=== PATIENT | male | born 1990 | race Caucasian/White ===

== ENCOUNTER 2021-01-17 17:40 | Emergency (ER) | payer BC, OTHER ==
[~2021-01-17] VITALS: Ht 167.7 cm; Wt 74.4 kg
[2021-01-17 18:15] VITALS: BP 130/82
--- NOTE | 2021-01-17 18:41 | ED Fall/Injury ---
General Stated Complaint: FALL - R BUTT CHEEK PAIN Source: patient Exam Limitations: no limitations History of Present Illness Date Seen by Provider: Jan 17, 2021 Time Seen by Provider: 18:26 Initial Comments This is a well-appearing 31-year-old male presents to the ER with complaints of right buttock cheek bruising and soreness since he fell yesterday. States he was playing softball around 1645 when he jumped over another player and landed on his right butt cheek. He said he had some bruising and soreness but this is progressively worsened throughout the day. Girlfriend states that the bruising is significantly increased from just a couple hours ago. Has taken some ibuprofen with minimal relief. Allergies and Home Medications Allergies Coded Allergies: No Known Drug Allergies (Unverified , 01/17/21) Home Medications Cyclobenzaprine HCl 10 Mg Tablet, 10 MG PO Q8H PRN for SPASMS Prescribed by: SUSAN CONDON on 01/17/211999 Patient Home Medication List Home Medication List Reviewed: Yes Review of Systems Review of Systems Constitutional: no symptoms reported Eyes: No Symptoms Reported Ears, Nose, Mouth, Throat: no symptoms reported Respiratory: no symptoms reported Gastrointestinal: no symptoms reported Genitourinary: no symptoms reported Musculoskeletal: see HPI Skin: see HPI Psychiatric/Neurological: No Symptoms Reported Physical Exam Vital Signs Vital Signs - First Documented 01/17/21 18:15 Temp 36.6 Pulse 90 Resp 16 B/P (MAP) 130/82 (98) Pulse Ox 99 O2 Delivery Room Air Capillary Refill : Height, Weight, BMI Height: '" Weight: lbs. oz. kg; BMI Method: General Appearance: WD/WN, no apparent distress HEENT: PERRL/EOMI, normal ENT inspection Neck: full range of motion, normal inspection Cardiovascular: normal peripheral pulses, regular rate, rhythm Respiratory: lungs clear, normal breath sounds, no respiratory distress Gastrointestinal: normal bowel sounds, non tender, soft Rectal: normal exam Back: normal inspection, no vertebral tenderness Extremities: normal range of motion, normal inspection Neurologic/Psychiatric: no motor/sensory deficits, alert, normal mood/affect, oriented x 3 Skin: warm/dry, ecchymosis (right buttocks noted to have diffuse purple bruising and hematoma center of glute. ) [place] Coma Score Best Eye Response: (4) Open Spontaneously Best Verbal Response: (5) Oriented Best Motor Response: (6) Obeys Commands [place] Total: 15 Progress/Results/Core Measures Results/Orders Lab Results Laboratory Tests Test 01/17/21 18:42 Range/Units Hemoglobin 13.0 L 13.3-17.7 g/dL Hematocrit 36 L 40-54 % My Orders Orders - SUSAN CONDON APRN Hemoglobin And Hematocrit (01/17/21 18:37) Ct Pelvis W (01/17/21 18:37) Iohexol Injection (Omnipaque 350 Mg/Ml 1 (01/17/21 19:15) Received Contrast (Hold Metformin- Contr (01/17/21 19:15) Ns (Ivpb) (Sodium Chloride 0.9% Ivpb Bag (01/17/21 19:15) Orphenadrine Inj (Ed Only) (Norflex Inje (01/17/21 20:00) Medications Given in ED Vital Signs/I&O 01/17/21 18:15 Temp 36.6 Pulse 90 Resp 16 B/P (MAP) 130/82 (98) Pulse Ox 99 O2 Delivery Room Air Diagnostic Imaging Diagonstic Imaging: Xray Plain Films/CT/US/NM/MRI: pelvis Comments [facility] [place], [place] NAME: MEGHANAJOHNSON Asad [facility] REC#: [id number] PT STATUS: REG ER : 1990 PHYSICIAN: SUSAN CONDON APRN ADMIT DATE: 01/17/21/ER Signed Date of Exam:01/17/21 CT PELVIS W EXAMINATION: CT pelvis with intravenous contrast. TECHNIQUE: Multiple contiguous axial images were obtained through the pelvis after the uneventful administration of intravenous contrast. All CT scans use one or more of the following dose optimizing techniques: automated exposure control, MA and/or KvP adjustment based on patient size and exam type or iterative reconstruction. HISTORY: Right gluteal bruising after fall COMPARISON: None available. FINDINGS: The visualized bowel and appendix are unremarkable without obstruction. The visualized aorta and iliac arteries are normal in caliber. The urinary bladder and prostate gland are unremarkable. There is no free fluid or free air within the visualized pelvis. No pathologically enlarged lymph nodes are seen. There is right hip and upper lower extremity edema and fat stranding likely related to recent trauma. Within the right gluteal soft tissues there is an 8.3 x 3.2 cm fluid collection, likely hematoma (series 3 image 69). No acute fracture is seen. IMPRESSION: 1. Right hip and lower extremity edema, likely related to recent trauma. There is a likely 8.3 x 3.2 cm hematoma within the right gluteal soft tissues. 2. No other acute osseous abnormality of the pelvis. Dictated by: Dictated on workstation # [id number] Dict: 01/17/211938 Trans: 01/17/211954 [facility] [id number] Interpreted by: GALILEA WALKER DO Electronically signed by: GALILEA WALKER DO 01/17/211954 Reviewed: Reviewed by Me Departure Impression Primary Impression: Traumatic hematoma of buttock Disposition: HOME, SELF-CARE Condition: Improved Departure-Patient Inst. Decision time for Depature: 19:58 Referrals: NO,LOCAL PHYSICIAN (PCP/Family) Primary Care Physician Patient Instructions: HEMATOMA Add. Discharge Instructions: Plan: 1. Rest. Avoid over exerting your buttock muscle. 2. Ice 20 minutes at at time 4-6x per day. 3. May take Tylenol or Ibuprofen as needed for pain per package. 4. May use Flexeril as needed for breakthrough pain. DO NOT DRIVE OR OPERATE EQUIPMENT while taking. 5. Return for any new, concerning, or worsening symptoms. Scripts Cyclobenzaprine HCl (Cyclobenzaprine HCl) 10 Mg Tablet 10 MG PO Q8H PRN for SPASMS, #15 TAB 0 Refills Prov: SUSAN CONDON MOTION PICTURE SET WORKER 01/17/21 SUSAN CONDON MOTION PICTURE SET WORKER Jan 17, 2021 18:40
[2021-01-17] MEDS ORDERED: HOLD METFORMIN - RECEIVED CONTRAST 20 ML VIAL IV SCH (19:15)
[2021-01-17] MEDS ORDERED: NS 100 ML (IVPB) BAG IV ONE (19:15)
[2021-01-17] MEDS ORDERED: IOHEXOL 350 MG/ML 100 ML (OMNIPAQUE 350) VIAL IV ONE (19:15)
--- NOTE | 2021-01-17 19:46 | Diagnostic Imaging Report ---
EXAMINATION: CT pelvis with intravenous contrast. TECHNIQUE: Multiple contiguous axial images were obtained through the pelvis after the uneventful administration of intravenous contrast. All CT scans use one or more of the following dose optimizing techniques: automated exposure control, MA and/or KvP adjustment based on patient size and exam type or iterative reconstruction. HISTORY: Right gluteal bruising after fall COMPARISON: None available. FINDINGS: The visualized bowel and appendix are unremarkable without obstruction. The visualized aorta and iliac arteries are normal in caliber. The urinary bladder and prostate gland are unremarkable. There is no free fluid or free air within the visualized pelvis. No pathologically enlarged lymph nodes are seen. There is right hip and upper lower extremity edema and fat stranding likely related to recent trauma. Within the right gluteal soft tissues there is an 8.3 x 3.2 cm fluid collection, likely hematoma (series 3 image 69). No acute fracture is seen. IMPRESSION: 1. Right hip and lower extremity edema, likely related to recent trauma. There is a likely 8.3 x 3.2 cm hematoma within the right gluteal soft tissues. 2. No other acute osseous abnormality of the pelvis. Dictated by: Dictated on workstation # [id number]
[2021-01-17] MEDS ORDERED: CYCL10TA9 PO (20:00)
[2021-01-17] MEDS ORDERED: ORPHENADRINE 60 MG/2 ML (NORFLEX) AMP (ED ONLY) IV ONE (20:00)
== END 2021-01-17 20:14 | disposition home or self-care (01) ==
LOC: EDUNIT# 17:40 → ER 17:43
DX: S30.0XXA Contusion of lower back and pelvis, initial encounter (principal); W21.07XA Struck by softball, initial encounter
CPT/HCPCS: 36415; 72193; 85014; 85018

== ENCOUNTER 2021-07-01 01:29 | Emergency (ER) | payer BC ==
[~2021-07-01] VITALS: Ht 170 cm; Wt 72.5 kg
[~2021-07-01 01:29] MED LIST: CYCL10TA25 PO
[2021-07-01 01:52] VITALS: BP 134/94
[2021-07-01] MEDS ORDERED: IBUPROFEN 800 MG (MOTRIN) TAB PO STA (02:06)
[2021-07-01] MEDS ORDERED: HYDROcodone/APAP 7.5 MG/325 MG (LORTAB, LORCET PLUS) TABLET PO STA (02:06)
--- NOTE | 2021-07-01 02:09 | ED EENT ---
History of Present Illness General Chief Complaint: Eye Problems Stated Complaint: EYE PAIN Source: patient Exam Limitations: no limitations History of Present Illness Date Seen by Provider: Jul 01, 2021 Time Seen by Provider: 02:01 Initial Comments Here with complaint of bilateral eye pain after welding yesterday. States he was using his buddies mask that was auto darkening but it was likely not set dark enough. Denies other injury. Has history of previous welding burn and actually works as a fitter/welder as well. Timing/Duration: gradual Severity: moderate Location: eye (R), eye (L) Prearrival Treatment: no prearrival treatment Allergies and Home Medications Allergies Coded Allergies: No Known Drug Allergies (Unverified , 01/17/21) Patient Home Medication List Home Medication List Reviewed: Yes Cyclobenzaprine HCl (Cyclobenzaprine HCl) 10 Mg Tablet, 10 MG PO Q8H PRN for SPASMS Prescribed by: SUSAN CONDON on 01/17/211999 Review of Systems Review of Systems Constitutional: see HPI; No chills, No fever Eyes: Inflammation, Pain Respiratory: no symptoms reported Cardiovascular: no symptoms reported Skin: no symptoms reported Past Aryrygr-Wpxent-Pzfehf Hx Seasonal Allergies Seasonal Allergies: No Past Medical History Surgeries: Yes (RIGHT WRIST) Respiratory: No Cardiac: No Neurological: Yes (4 BRAIN BLEEDS) Genitourinary: No Gastrointestinal: No Musculoskeletal: Yes (MULTIPLE MUSCULOSKELETAL BREAKS/INJURIES) Endocrine: No HEENT: No Cancer: No Psychosocial: No Integumentary: No Blood Disorders: No Family Medical History Reviewed Nursing Family Hx Physical Exam Height, Weight, BMI Height: '" Weight: lbs. oz. kg; 26.00 BMI Method: General Appearance: WD/WN, mild distress Eyes: bilateral eye conjunctival inflammation, bilateral eye other (Erythema bilateral conjunctive) Cardiovascular: regular rate, rhythm, no murmur Respiratory: lungs clear, normal breath sounds Neurologic/Psychiatric: alert, oriented x 3 Skin: normal color, warm/dry Progress/Results/Core Measures Results/Orders My Orders Orders - CROW RAINES MD Hydrocodone/Apap 7.5/325 Tab (Lortab 7. (07/01/21 02:06) Ibuprofen Tablet (Motrin Tablet) (07/01/21 02:06) Tetracaine 0.5% Ophth Kori Sdv (Tetracai (07/01/21 02:15) Medications Given in ED Current Medications Medications Dose Ordered Sig/Zoë Route Start Time Stop Time Status Last Admin Dose Admin Tetracaine HCl 4 ml ONCE ONCE OU 07/01/21 02:15 07/01/21 02:16 DC 07/01/21 02:12 4 ML Progress Progress Note : Progress Note Seen and evaluated. Hydrocodone 7.5/325 1 tab p.o. Ibuprofen 800 mg p.o. Tetracaine drops to bilateral eyes which resolved the pain. Likely UV keratitis. Discharged home with return precautions. Patient verbalized understanding of instructions and agreement with plan. Departure Impression Primary Impression: UV keratitis Qualified Codes: H16.133 - Photokeratitis, bilateral Disposition: HOME, SELF-CARE Condition: Improved Departure-Patient Inst. Decision time for Depature: 02:28 Referrals: BRANDON ISLAS OD,LOCAL PHYSICIAN (PCP) Primary Care Physician Patient Instructions: [facility] Add. Discharge Instructions: All discharge instructions reviewed with patient and/or family. Voiced understanding. You may use ibuprofen 600 mg every 8 hours as needed for pain. You will be light sensitive for a few days. Take other medications as directed. If you are not taking the prescribed pain medicine, you may take Tylenol/acetaminophen 1000 mg every 6-8 hours as needed for pain. Is very important that you protect your eye from welding ultraviolet light. Return for worse pain, purulent drainage, vision problems or other concerns as needed. If you are not improving you yvette barahona follow-up with the eye doctor listed or of your choosing in 2 to 3 days. CROW RAINES MD Jul 01, 2021 02:09
[2021-07-01] MEDS ORDERED: TETRACAINE 0.5% OPHTH SOLN 4 ML BTL (SINGLE DOSE ONLY) OU ONE (02:15)
[2021-07-01] MEDS ORDERED: ACHD5005 PO (02:40)
== END 2021-07-01 02:40 | disposition home or self-care (01) ==
LOC: EDUNIT# 01:29 → ER 01:31
DX: H16.133 Photokeratitis, bilateral (principal)
CPT/HCPCS: 99283

== ENCOUNTER 2022-08-07 07:53 | Emergency (ER) | payer BC ==
[~2022-08-07] VITALS: Ht 167 cm; Wt 77.1 kg
[~2022-08-07 07:53] MED LIST changes: +ACHD5005 PO
--- NOTE | 2022-08-07 08:21 | ED GI ---
General Chief Complaint: Abdominal/GI Problems Stated Complaint: VOMITING UP BLOOD | Source of Information: Patient, Family Exam Limitations: No Limitations History of Present Illness Date Seen by Provider: Aug 07, 2022 Time Seen by Provider: 08:10 Initial Comments 32-year-old male arrives with his who provides most of the history. She states for the last 2 years every morning when he wakes up he vomits. He frequently has a diarrheal at this time. He does occasionally vomit throughout the day as well. For the last couple of days his vomiting has gotten worse. He describes diffuse abdominal cramping without any focal abdominal tenderness. He has occasionally had streaks of blood in his emesis. He denies any bloody or dark tarry stools. He does have chills but is unsure if he has had fevers. No cough but is describing shortness of breath. He denies any sick contacts. He also complains of some diffuse muscle aches and cramping. Allergies and Home Medications Allergies Coded Allergies: No Known Drug Allergies (Unverified , 01/17/21) Patient Home Medication List Home Medication List Reviewed: Yes Cyclobenzaprine HCl (Cyclobenzaprine HCl) 10 Mg Tablet, 10 MG PO Q8H PRN for SPASMS Prescribed by: SUSAN CONDON on 01/17/211999 Hydrocodone Bit/Acetaminophen (HYDROcodone/APAP 5 MG/325 MG TAB) 1 Tab Tab, 1 TAB PO Q6H Prescribed by: CROW RAINES on 07/01/21 0240 Review of Systems Review of Systems Constitutional: chills EENTM: No Symptoms Reported Respiratory: Shortness of Air Cardiovascular: No Symptoms Reported Gastrointestinal: Abdominal Pain, Diarrhea, Nausea, Vomiting Genitourinary: No Symptoms Reported Musculoskeletal: muscle cramps Skin: no symptoms reported Psychiatric/Neurological: No Symptoms Reported Endocrine: No Symptoms Reported Hematologic/Lymphatic: No Symptoms Reported Past Aguvizm-Lofdsu-Euvkox Hx Patient Social History Tobacco Use?: No Substance use?: Yes Substance type: Marijuana Substance frequency: Once in a while Alcohol Use?: Yes Alcohol Frequency: Rarely Pt feels they are or have been: No Immunizations Up To Date First/Initial COVID19 Vaccinat: N/A Second COVID19 Vaccination Joel: N/A Third COVID19 Vaccination Date: N/A Seasonal Allergies Seasonal Allergies: No Past Medical History Surgeries: Yes (RIGHT WRIST) Respiratory: No Cardiac: No Neurological: Yes (4 BRAIN BLEEDS) Genitourinary: No Gastrointestinal: No Musculoskeletal: Yes (MULTIPLE MUSCULOSKELETAL BREAKS/INJURIES) Endocrine: No HEENT: No Cancer: No Psychosocial: No Integumentary: No Blood Disorders: No Family Medical History Reviewed Nursing Family Hx No Pertinent Family Hx Physical Exam Vital Signs Vital Signs - First Documented 08/07/22 08:12 Temp 36.2 Pulse 68 Resp 18 B/P (MAP) 143/98 (113) Pulse Ox 100 Capillary Refill : Height/Weight/BMI Height: '" Weight: lbs. oz. kg; 25.00 BMI Method: General Appearance: WD/WN, no apparent distress HEENT: normal ENT inspection, pharynx normal Neck: non-tender, supple Respiratory: chest non-tender, lungs clear, normal breath sounds, no respiratory distress, no accessory muscle use, other (Hyperventilating) Cardiovascular: regular rate, rhythm, no edema, no gallop, no JVD, no murmur Gastrointestinal: normal bowel sounds, soft, no organomegaly, tenderness (Diffuse tenderness without rebound or guarding. No mass organomegaly. No skin changes.) Extremities: normal range of motion, non-tender, normal inspection, no pedal edema, no calf tenderness, normal capillary refill Back: normal inspection, no CVA tenderness Neurologic/Psychiatric: alert, normal mood/affect, oriented x 3 Skin: normal color, warm/dry Progress/Results/Core Measures Results/Orders Lab Results Laboratory Tests Test 08/07/22 08:37 08/07/22 09:15 Range/Units White Blood Count 15.9 H 4.3-11.0 10^3/uL Red Blood Count 4.97 4.30-5.52 10^6/uL Hemoglobin 15.8 13.3-17.7 g/dL Hematocrit 44 40-54 % Mean Corpuscular Volume 88 80-99 fL Mean Corpuscular Hemoglobin 32 25-34 pg Mean Corpuscular Hemoglobin Concent 36 32-36 g/dL Red Cell Distribution Width 12.1 10.0-14.5 % Platelet Count 279 130-400 10^3/uL Mean Platelet Volume 10.5 9.0-12.2 fL Immature Granulocyte % (Auto) 1 % Neutrophils (%) (Auto) 89 H 42-75 % Lymphocytes (%) (Auto) 6 L 12-44 % Monocytes (%) (Auto) 4 0-12 % Eosinophils (%) (Auto) 0 0-10 % Basophils (%) (Auto) 0 0-10 % Neutrophils # (Auto) 14.1 H 1.8-7.8 10^3/uL Lymphocytes # (Auto) 1.0 1.0-4.0 10^3/uL Monocytes # (Auto) 0.7 0.0-1.0 10^3/uL Eosinophils # (Auto) 0.0 0.0-0.3 10^3/uL Basophils # (Auto) 0.0 0.0-0.1 10^3/uL Immature Granulocyte # (Auto) 0.1 0.0-0.1 10^3/uL Neutrophils % (Manual) 90 % Lymphocytes % (Manual) 5 % Monocytes % (Manual) 2 % Eosinophils % (Manual) 0 % Basophils % (Manual) 0 % Band Neutrophils 3 % Blood Morphology Comment NORMAL Urine Color YELLOW Urine Clarity CLEAR Urine pH 8.0 5-9 Urine Specific [place] 1.020 1.016-1.022 Urine Protein TRACE H NEGATIVE Urine Glucose (UA) NEGATIVE NEGATIVE Urine Ketones 2+ H NEGATIVE Urine Nitrite NEGATIVE NEGATIVE Urine Bilirubin NEGATIVE NEGATIVE Urine Urobilinogen 0.2 < = 1.0 MG/DL Urine Leukocyte Esterase NEGATIVE NEGATIVE Urine RBC (Auto) NEGATIVE NEGATIVE Urine RBC NONE /HPF Urine WBC 0-2 /HPF Urine Crystals NONE /LPF Urine Bacteria NEGATIVE /HPF Urine Casts NONE /LPF Urine Mucus SMALL H /LPF Urine Culture Indicated NO Sodium Level 141 135-145 MMOL/L Potassium Level 3.6 3.6-5.0 MMOL/L Chloride Level 109 H 98-107 MMOL/L Carbon Dioxide Level 18 L 21-32 MMOL/L Anion Gap 14 5-14 MMOL/L Blood Urea Nitrogen 10 7-18 MG/DL Creatinine 0.92 0.60-1.30 MG/DL Estimat Glomerular Filtration Rate 113 BUN/Creatinine Ratio 11 Glucose Level 144 H 70-105 MG/DL Calcium Level 9.7 8.5-10.1 MG/DL Corrected Calcium 8.5-10.1 MG/DL Total Bilirubin 0.6 0.1-1.0 MG/DL Aspartate Amino Transf (AST/SGOT) 20 5-34 U/L Alanine Aminotransferase (ALT/SGPT) 30 0-55 U/L Alkaline Phosphatase 94 40-136 U/L Total Protein 7.5 6.4-8.2 GM/DL Albumin 4.8 H 3.2-4.5 GM/DL Lipase 22 8-78 U/L Influenza Type A (RT-PCR) Not Detected Not Detecte Influenza Type B (RT-PCR) Not Detected Not Detecte SARS-CoV-2 RNA (RT-PCR) Not Detected Not Detecte My Orders Orders - KENYATTA HUNT DO Comprehensive Metabolic Panel (08/07/22 08:18) Lipase (08/07/22 08:18) Cbc With Automated Diff (08/07/22 08:18) Ondansetron Injection (Zofran Injectio (08/07/22 08:30) Ua Culture If Indicated (08/07/22 08:18) Chest Pa/Lat (2 View) (08/07/22 08:21) Covid 19 Inhouse Test (08/07/22 08:21) Influenza A And B By Pcr (08/07/22 08:21) Manual Differential (08/07/22 08:37) Medications Given in ED Current Medications Medications Dose Ordered Sig/Zoë Route Start Time Stop Time Status Last Admin Dose Admin Ondansetron HCl 8 mg ONCE ONCE IVP 08/07/22 08:30 08/07/22 08:31 DC 08/07/22 08:34 8 MG Vital Signs/I&O 08/07/22 08:12 Temp 36.2 Pulse 68 Resp 18 B/P (MAP) 143/98 (113) Pulse Ox 100 Departure Communication (Admissions) CMP to evaluate liver function, possible gallbladder pathology, overall check electrolytes and renal function. Lipase to rule out pancreatitis. Go ahead and give some IV Zofran to help with his nausea and vomiting symptoms however this could appear to be a more chronic problem for him. His abdominal exam is nonsurgical. He does occasionally smoke marijuana, possible hyperemesis secondary to this. Impression Primary Impression: Chronic vomiting Disposition: 01 HOME, SELF-CARE Condition: Stable Departure-Patient Inst. Referrals: NO,LOCAL PHYSICIAN (PCP/Family) Primary Care Physician Patient Instructions: Nausea and Vomiting, Adult (DC) Add. Discharge Instructions: Take the nausea medicine as prescribed as needed. Increase your fluids at home, rest. Return to the emergency department for any severe concerns. I recommend you follow-up with your primary doctor for further evaluation and treatment recommendations regarding your chronic nausea and vomiting. All discharge instructions reviewed with patient and/or family. Voiced understanding. Scripts Ondansetron (Ondansetron Odt) 8 Mg Tab.rapdis 8 MG SL Q6H PRN for NAUSEA/VOMITING for 7 Days, #42 TAB Prov: KENYATTA HUNT DO 08/07/22 KENYATTA HUNT DO Aug 07, 2022 08:21
[2022-08-07] MEDS ORDERED: ONDANSETRON 4 MG/2 ML (SDV) Z0FRAN IVP ONE (08:30)
--- NOTE | 2022-08-07 08:50 | Diagnostic Imaging Report ---
EXAMINATION: Chest 2 view HISTORY: Shortness of breath. COMPARISON: 02/02/2018. FINDINGS: The lung volumes are normal. No focal consolidation is seen. No large pleural effusion or pneumothorax is seen. The cardiomediastinal silhouette is normal in size and contour. No acute osseous abnormality is seen. IMPRESSION: 1. No acute pleuroparenchymal process. Dictated by: Dictated on workstation # [id number]
[2022-08-07 09:15] LABS: BASOPHILS % (AUTO) 0 % (0-10); BILIRUBIN,URINE NEGATIVE (NEGATIVE); CLARITY,URINE CLEAR; COLOR,URINE YELLOW; EOSINOPHILS % (AUTO) 0 % (0-10); GLUCOSE, URINE (UA) NEGATIVE (NEGATIVE); HEMATOCRIT 44 % (40-54); HEMOGLOBIN 15.8 g/dL (13.3-17.7); KETONES,URINE 2+ (NEGATIVE); LEUKOCYTE ESTERASE ,URINE NEGATIVE (NEGATIVE); LYMPHOCYTES % (AUTO) 6 % (12-44); MEAN CORPUSCULAR HEMOGLOBIN 32 pg (25-34); MEAN CORPUSCULAR HGB CONC 36 g/dL (32-36); MEAN CORPUSCULAR VOLUME 88 fL (80-99); MEAN PLATELET VOLUME 10.5 fL (9.0-12.2); MONOCYTES # (AUTO) 0.7 10^3/uL (0.0-1.0); MONOCYTES % (AUTO) 4 % (0-12); NEUTROPHILS # (AUTO) 14.1 10^3/uL (1.8-7.8); NEUTROPHILS % (AUTO) 89 % (42-75); NITRITE,URINE NEGATIVE (NEGATIVE); PLATELET COUNT 279 10^3/uL (130-400); PROTEIN,URINE TRACE (NEGATIVE); WHITE BLOOD COUNT 15.9 10^3/uL (4.3-11.0)
[2022-08-07 09:20] LABS: ALBUMIN 4.8 GM/DL (3.2-4.5)
[2022-08-07 09:21] LABS: CHLORIDE 109 MMOL/L (98-107); POTASSIUM 3.6 MMOL/L (3.6-5.0); SODIUM 141 MMOL/L (135-145)
[2022-08-07 09:22] LABS: CALCIUM 9.7 MG/DL (8.5-10.1)
[2022-08-07 09:23] LABS: GLUCOSE 144 MG/DL (70-105); TOTAL PROTEIN 7.5 GM/DL (6.4-8.2)
[2022-08-07 09:24] LABS: CARBON DIOXIDE 18 MMOL/L (21-32)
[2022-08-07 09:25] LABS: BILIRUBIN,TOTAL 0.6 MG/DL (0.1-1.0)
[2022-08-07 09:26] LABS: ALKALINE PHOSPHATASE 94 U/L (40-136); CREATININE SERUM 0.92 MG/DL (0.60-1.30); GFR ESTIMATED 113
[2022-08-07 09:28] LABS: BACTERIA,URINE NEGATIVE /HPF; BUN/CREATININE RATIO 11; WBC,URINE 0-2 /HPF
[2022-08-07 09:29] LABS: ALANINE AMINOTRANSFERASE 30 U/L (0-55)
[2022-08-07 09:30] LABS: LIPASE 22 U/L (8-78)
[2022-08-07 09:50] LABS: BAND NEUTROPHILS 3 %; BASOPHILS % (MANUAL) 0 %; EOSINOPHILS % (MANUAL) 0 %; LYMPHOCYTES % (MANUAL) 5 %; MONOCYTES % (MANUAL) 2 %; NEUTROPHILS % (MANUAL) 90 %; RBC MORPH NORMAL
[2022-08-07] MEDS ORDERED: ONDA8TAB13 SL (09:58)
[2022-08-07 10:07] VITALS: BP 114/74
== END 2022-08-07 10:06 | disposition home or self-care (01) ==
LOC: EDUNIT# 07:53 → ER 07:56
DX: R11.2 Nausea with vomiting, unspecified (principal); R10.84 Generalized abdominal pain; Z20.822 Contact with and (suspected) exposure to COVID-19; Z28.310 Unvaccinated for COVID-19
CPT/HCPCS: 36415; 71046; 80053; 81000; 83690; 85007; 85027; 87636

== ENCOUNTER 2022-09-11 05:41 | Outpatient (CLI) | payer BC ==
[~2022-09-11] VITALS: Ht 167.6 cm; Wt 70.8 kg
[~2022-09-11 05:41] MED LIST changes: +ONDA8TAB13 SL
== END 2022-09-11 15:59 | disposition home or self-care (01) ==
LOC: PREOP 05:41
PROVIDERS: ATTEND Surgery
DX: Z01.818 Encounter for other preprocedural examination (principal)

== ENCOUNTER 2022-09-24 11:09 | Day surgery (SDC) | payer BC ==
[~2022-09-24] VITALS: Ht 167.6 cm; Wt 70.8 kg
[2022-09-24] MEDS ORDERED: LACTATED RINGERS 1,000 ML IV STA (11:11)
[2022-09-24] MEDS ORDERED: HURRICAINE EXT TUBE (BENZOCAINE) XX PRN (11:15)
[2022-09-24 11:23] VITALS: BP 127/80
[2022-09-24] MEDS ORDERED: MIDAZOLAM 2 MG/2 ML (VERSED) VIAL ONE (11:28)
[2022-09-24] MEDS ORDERED: PROPOFOL INJECTION 50 ML IV ONE (11:28)
--- NOTE | 2022-09-24 11:33 | Progress Note-Pre Operative ---
Pre-Operative Progress Note Date H&P Reviewed: Sep 24, 2022 Time H&P Reviewed: 11:33 History & Physical: H&P Reviewed, Patient Examed, No changes noted Pre-Operative Diagnosis: n/v hematemesis JASPER WARD DO Sep 24, 2022 11:33
[2022-09-24] MEDS ORDERED: PANT40TA2 PO (11:44)
--- NOTE | 2022-09-24 11:44 | Discharge Inst-Simple/Standard ---
Discharge Inst-Standard Discharge Medications New, Converted or Re-Newed RX: Transmitted to Pharmacy Patient Instructions/Follow Up Plan of Care/Instructions/FU: 2 weeks Stuart Activity as Tolerated: Yes Discharge Diet: Regular Diet JASPER WARD DO Sep 24, 2022 11:44
[2022-09-24 11:45] VITALS: BP 102/66
--- NOTE | 2022-09-24 11:45 | Progress Note-Post Operative ---
Post-Operative Progess Note Surgeon (s)/Bottle Packer (s) Surgeon JASPER WARD DO Bottle Packer: na Pre-Operative Diagnosis n/v hematemesis Post-Operative Diagnosis gastritis Procedure & Operative Findings Date of Procedure 09/24/22 Procedure Performed/Findings egd c biopsies Anesthesia Type per oxyacetylene cutter Estimated Blood Loss Estimated blood loss (mL): none Specimens/Packing Specimens Removed antrum, body, ge JASPER WARD DO Sep 24, 2022 11:45
[2022-09-24 11:50] VITALS: BP 100/66
[2022-09-24 11:55] VITALS: BP 115/65
[2022-09-24 12:15] VITALS: BP 121/71
--- NOTE | 2022-09-24 13:02 | Anesthesia-General Post-Op ---
MAC Patient Condition Mental Status/LOC: Same as Preop Cardiovascular: Satisfactory Nausea/Vomiting: Absent Respiratory: Satisfactory Pain: Controlled Complications: Absent Post Op Complications Complications None Follow Up Care/Instructions Patient Instructions None needed. Anesthesiology Discharge Order Discharge Order Patient is doing well, no complaints, stable vital signs, no apparent adverse anesthesia problems. No complications reported per nursing. HOA HERNÁNDEZ CRNA Sep 24, 2022 13:02
--- NOTE | 2022-09-24 14:10 | OPERATIVE REPORT ---
DATE OF SERVICE: 09/24/2022 PREOPERATIVE DIAGNOSES: Nausea, vomiting, hematemesis. POSTOPERATIVE DIAGNOSIS: Gastritis. SURGEON: Jasper Davidson DO ANESTHESIA: Per STUDIO DATA ANALYST. PROCEDURES: EGD with biopsies. DESCRIPTION OF PROCEDURE: The patient was taken to endoscopy suite, placed in left lateral recumbent position. Timeout was performed. Scope was inserted in the mouth, down the esophagus, stomach and into the duodenum without difficulty. No polyps, masses or ulcerations within the duodenum. Scope was then slowly retracted back until stomach where it was further insufflated. No polyps, masses or ulcerations within the antrum. Biopsy of the antrum was obtained. Scope was retroflexed noting some diffuse areas of gastritis, no other pathology. Biopsy of the body was obtained. Scope was returned to its normal position, slowly withdrawn until distal esophagus. Biopsy of the GE junction was obtained. No polyps, masses or ulcerations. Scope was slowly retracted back until completely removed. The patient tolerated the procedure well without complications, taken to recovery room in stable condition. RECOMMENDATIONS: The patient will follow up on biopsies in 2 weeks. I will start him Protonix 40 mg daily, see if any improvement. Further recommendation pending results. Job ID: [id number] DocumentID: [id number] Dictated Date: 09/24/2022 11:47:01 Product Development Actuary Date: 09/24/2022 14:09:00 Dictated By: JASPER DAVIDSON DO
== END 2022-09-24 12:22 | disposition home or self-care (01) ==
LOC: ENDO 11:09
PROVIDERS: ATTEND Surgery
DX: K29.71 Gastritis, unspecified, with bleeding (principal); K20.91 Esophagitis, unspecified with bleeding; F17.200 Nicotine dependence, unspecified, uncomplicated; Z28.310 Unvaccinated for COVID-19

== ENCOUNTER → 2022-10-15 | Outpatient (CLI) | payer BC ==
[~2022-10-15] MED LIST changes: +PANT40TA2 PO
--- NOTE | 2022-10-15 10:41 | Diagnostic Imaging Report ---
PROCEDURE: US Gallbladder. TECHNIQUE: Multiple real-time grayscale images were obtained over the right upper quadrant in various projections. INDICATION: Nausea and vomiting COMPARISON: None available FINDINGS: The visualized pancreas, aorta, and IVC are normal. The liver is normal. The gallbladder is normal. No pericholecystic fluid. No ascites. No intra or extrahepatic duct dilation, however the common bile duct is not delineated from the surrounding structures. The portal vein is patent and demonstrates hepatopedal flow. The kidney is normal. IMPRESSION: No abnormal liver/gallbladder findings The common bile duct was not assessed due to nonvisualization. Dictated by: Dictated on workstation # [id number]
== END ==
LOC: RAD 09:06
PROVIDERS: ATTEND Nurse Practitioner
DX: R11.2 Nausea with vomiting, unspecified (principal)
CPT/HCPCS: 76705

== ENCOUNTER → 2022-11-07 | Outpatient (CLI) | payer BC ==
[~2022-11-07] MED LIST changes: +CATHETER FLUSH 10 ML SYR IVP PRN
--- NOTE | 2022-11-07 13:33 | Diagnostic Imaging Report ---
INDICATION: Epigastric pain. EXAMINATION: HIDA scan, 11/07/2022. FINDINGS: After uneventful administration of 5.5 mCi of technetium-99m Choletec intravenously, subsequent imaging is performed with prompt homogeneous uptake seen throughout the liver. Gallbladder and small bowel are seen within 60 minutes. Subsequently administration of ensure administered orally with continued imaging performed. Ejection fraction was calculated at 32%. IMPRESSION: 1. No obstructive process. 2. Low ejection fraction suggesting gallbladder dyskinesia versus chronic cholecystitis. Dictated by: Dictated on workstation # [id number]
== END ==
LOC: CARD 10:55
PROVIDERS: ATTEND Nurse Practitioner
DX: R10.13 Epigastric pain (principal)
CPT/HCPCS: 78227; A9537

== ENCOUNTER 2022-11-15 05:29 | Outpatient (CLI) | payer BC ==
[~2022-11-15] VITALS: Ht 167.6 cm; Wt 70.8 kg
[~2022-11-15 05:29] MED LIST changes: -CATHETER FLUSH 10 ML SYR IVP PRN
[2022-11-15] MEDS ORDERED: HYDR-700 PO (12:44)
[2022-11-15] MEDS ORDERED: METO5TAB2 PO (12:44)
== END 2022-11-15 12:52 | disposition home or self-care (01) ==
LOC: PREOP 05:29
PROVIDERS: ATTEND Surgery
DX: Z01.818 Encounter for other preprocedural examination (principal)

== ENCOUNTER 2022-11-22 07:03 | Day surgery (SDC) | payer BC ==
[2022-11-22] VITALS (12 sets, daily range): BP systolic 124–146; BP diastolic 85–109
[~2022-11-22] VITALS: Ht 167.7 cm; Wt 70.8 kg
[~2022-11-22 07:03] MED LIST changes: +HYDR-700 PO; +METO5TAB2 PO
[2022-11-22] MEDS ORDERED: LACTATED RINGERS 1,000 ML IV PRN (07:15)
[2022-11-22] MEDS ORDERED: ceFAZolin INJECTION 2,000 MG in NS (IVPB) 50 ML IV ONE (07:15)
[2022-11-22] MEDS ORDERED: BUP/EPI 0.25% 1:200,000 (MARCAINE) 30 ML VIAL ONE (07:17)
[2022-11-22] MEDS ORDERED: SEVOFLURANE (ULTANE) 15 ML INHAL SOLN ONE (07:19)
[2022-11-22] MEDS ORDERED: ROCURONIUM 50 MG/5 ML (ZEMURON) VIAL IV ONE (07:19)
[2022-11-22] MEDS ORDERED: LIDOCAINE PF 2% 5 ML (XYLOCAINE) VIAL ONE (07:19)
[2022-11-22] MEDS ORDERED: proPOfol 200 MG/20 ML (DIPRIVAN) VIAL IV ONE (07:19)
[2022-11-22] MEDS ORDERED: ONDANSETRON 4 MG/2 ML (SDV) Z0FRAN ONE (07:19)
[2022-11-22] MEDS ORDERED: MIDAZOLAM 2 MG/2 ML (VERSED) VIAL ONE (07:20)
[2022-11-22] MEDS ORDERED: fentaNYL INJ 100 MCG/2 ML AMP ONE ×2 (07:20→09:58)
[2022-11-22] MEDS ORDERED: BUP/EPI 0.25% 1:200,000 (MARCAINE) 30 ML VIAL INJ ONE (07:24)
[2022-11-22] MEDS ORDERED: IOHEXOL 300 MG/ML 30 ML (OMNIPAQUE 300) VIAL INJ ONE (07:25)
[2022-11-22] MEDS ORDERED: CATHETER FLUSH 10 ML SYR IVP PRN (07:30)
--- NOTE | 2022-11-22 08:03 | Progress Note-Pre Operative ---
Pre-Operative Progress Note Date H&P Reviewed: Nov 22, 2022 Time H&P Reviewed: 08:02 History & Physical: H&P Reviewed, Patient Examed, No changes noted Pre-Operative Diagnosis: biliary dyskinesia JASPER WARD DO Nov 22, 2022 08:02
[2022-11-22] MEDS ORDERED: ACHD5005 PO (09:55)
[2022-11-22] MEDS ORDERED: DOCU-143 PO (09:55)
--- NOTE | 2022-11-22 09:56 | Discharge Inst-Simple/Standard ---
Discharge Inst-Standard Discharge Medications New, Converted or Re-Newed RX: Transmitted to Pharmacy Patient Instructions/Follow Up Plan of Care/Instructions/FU: 2 weeks neisha Activity as Tolerated: No Discharge Diet: Regular Diet Other Inst to Patient Follow up Appt: Make appointment for 2 weeks. Instructions: No lifting greater than 10 pounds. No strenuous activity. May shower in 24 hours, no tub bath or soaking. Use incentive spirometer at home as directed. No Smoking Skin/Wound Care: You have special glue over incision, it will fall off on it's own. Symptoms to Report: Appetite Changes, Extremity Discoloration, Numbness/Tingling, Swelling Increased, Bleeding Excessive, Eyesight Changes, Pain Increased, Urine Color Change, Constipation(Persistent), Fever over 101 degree F, Pain/Pressure in chest, Urinating Difficulty, Cough Up/Vomit Blood, Heart Beat Irreg/Pounding, Pain/Pressure in jaw, Vaginal Bleeding Increase, Cramps in feet or legs, Lightheadedness, Pain/Pressure in shoulder, Diarrhea(Persistent), Memory Changes Suddenly, Questions/Concerns, Weight gain consecutive days, Dizziness/Fainting, Nausea/Vomiting, Shortness of Breath, Weight gain over 2 pounds. If eyes or skin turn yellow notify physician. If questions or concerns contact your physician Or seek help at emergency department. JASPER WARD DO Nov 22, 2022 09:56
--- NOTE | 2022-11-22 09:57 | Progress Note-Post Operative ---
Post-Operative Progess Note Surgeon (s)/Air Launch Weapons Technician (s) Surgeon JASPER WARD DO Air Launch Weapons Technician: Dr. Hoyos to assist in retraction dissection and closure. Pre-Operative Diagnosis biliary dyskinesia Post-Operative Diagnosis same Procedure & Operative Findings Date of Procedure 11/22/22 Procedure Performed/Findings PROCEDURE: Laparoscopic cholecystectomy with intraoperative cholangiogram. COMPLICATIONS: None. PROCEDURE: The patient was taken to the operating suite and was prepped and draped in sterile fashion. A surgical pause was performed. Just superior to the umbilicus, a 12 mm incision was made. Dissection was taken down to the fascia, which was then scored and grasped with a Derrick and the abdomen was then entered. A 0 Vicryl suture was placed in a goqlie-kh-[id number] fashion and a Quintero trocar was placed and secured. Pneumoperitoneum was achieved. A 5mm trochar place in the subxyphoid and 2 in the right upper quadrant. The gallbladder was then grasped and elevated. The cystic duct, and cystic artery were then dissected out. Clip was placed on the distal portion of the cystic duct which was then partially transected. An arrow catheter was inserted into the duct. The cholangiogram was then performed. No filing defects and contrast made its way into the duodenum. Catheter removed. Clips were placed on proximal portion of the cystic duct and then the duct was then transected. Clips were placed along the proximal and distal portion of the cystic artery which was then transected. Hook cautery was used to dissect the gallbladder from the gallbladder fossa achieving hemostasis. The gallbladder was placed in an Endobag and removed through the 12 mm trocar site. The abdomen was then reinspected. Copious amounts of irrigation were used to irrigate the abdomen and there were no signs of active bleeding. Hemostasis had been achieved. The 12 mm fascial defect was then closed with 0 Vicryl suture that had been placed in a [id number] fashion. The abdomen was then desufflated, the trocars were removed. The abdomen was then washed and dried. The skin was then closed using 4-0 Monocryl in a subcuticular fashion. The abdomen was washed and dried and Skin Affix was place over incisions. Patient tolerated the procedure well without any complications and was taken to the recovery room in stable condition. Anesthesia Type general Estimated Blood Loss Estimated blood loss (mL): minimal Specimens/Packing Specimens Removed gallbladder JASPER WARD DO Nov 22, 2022 09:57
--- NOTE | 2022-11-22 10:17 | Anesthesia-General Post-Op ---
General Patient Condition Mental Status/LOC: Same as Preop Cardiovascular: Satisfactory Nausea/Vomiting: Absent Respiratory: Satisfactory Pain: Controlled Complications: Absent Post Op Complications Complications None Follow Up Care/Instructions Patient Instructions None needed. Anesthesia/Patient Condition Patient Condition Patient is doing well, no complaints, stable vital signs, no apparent adverse anesthesia problems. No complications reported per nursing. FRANCESCA BANEGAS CRNA Nov 22, 2022 10:17
[2022-11-22] MEDS ORDERED: morphine INJ 10 MG/ML 1ML (SYR OR VIAL) IVP ONE (10:30)
[2022-11-22] MEDS ORDERED: MEPERIDINE (DEMEROL) INJ 50 MG/ML IVP ONE (10:30)
[2022-11-22] MEDS ORDERED: ONDANSETRON 4 MG/2 ML (SDV) Z0FRAN IVP PRN (10:30)
[2022-11-22] MEDS ORDERED: HYDROcodone/APAP 5 MG/325 MG (LORTAB) TAB ONE (11:24)
[2022-11-22] MEDS ORDERED: HYDROcodone/APAP 5 MG/325 MG (LORTAB) TAB PO ONE (11:30)
--- NOTE | 2022-11-22 15:26 | Diagnostic Imaging Report ---
INDICATION: Cholecystectomy Operative cholangiogram performed in the routine fashion with injection of the cystic duct stump and surgery. 6.1 seconds of fluoroscopy time was used. 18 images were obtained. Contrast injection demonstrates nondilated biliary tree. There are no filling defects in the common duct. Contrast passes to the duodenum without obstruction. IMPRESSION: Unremarkable operative cholangiogram. Dictated by: Dictated on workstation # [id number]
== END 2022-11-22 12:10 | disposition home or self-care (01) ==
LOC: SDC 07:03
PROVIDERS: ATTEND Surgery
DX: K82.8 Other specified diseases of gallbladder (principal); K81.1 Chronic cholecystitis; F17.210 Nicotine dependence, cigarettes, uncomplicated; Z28.310 Unvaccinated for COVID-19
CPT/HCPCS: 76000; 87081

== ENCOUNTER → 2023-05-26 | Outpatient (CLI) | payer BC ==
[~2023-05-26] MED LIST changes: +DOCU-143 PO
== END ==
LOC: LAB 16:24
PROVIDERS: ATTEND Surgery
DX: R11.10 Vomiting, unspecified (principal); R63.4 Abnormal weight loss
CPT/HCPCS: 36415; 86003

== ENCOUNTER 2023-06-04 05:47 | Outpatient (CLI) | payer BC ==
[~2023-06-04] VITALS: Ht 167.6 cm; Wt 69.9 kg
== END 2023-06-10 13:56 | disposition home or self-care (01) ==
LOC: PREOP 05:47
PROVIDERS: ATTEND Surgery
DX: Z01.818 Encounter for other preprocedural examination (principal)

== ENCOUNTER 2023-06-17 12:43 | Day surgery (SDC) | payer BC ==
[~2023-06-17] VITALS: Ht 167.6 cm; Wt 69.9 kg
[2023-06-17] MEDS ORDERED: LACTATED RINGERS 1,000 ML 1,000 ML IV STA (12:49)
[2023-06-17 13:00] VITALS: BP 120/83
[2023-06-17] MEDS ORDERED: HURRICAINE EXT TUBE (BENZOCAINE) XX PRN (13:00)
--- NOTE | 2023-06-17 13:19 | Progress Note-Pre Operative ---
Pre-Operative Progress Note Date H&P Reviewed: Jun 17, 2023 Time H&P Reviewed: 13:18 History & Physical: H&P Reviewed, Patient Examed, No changes noted Pre-Operative Diagnosis: Nausea and vomiting, Weight loss JASPER WARD DO Jun 17, 2023 13:19
[2023-06-17] MEDS ORDERED: MIDAZOLAM INJ 2 MG/2 ML VIAL ONE (14:54)
[2023-06-17 15:05] VITALS: BP 102/60
--- NOTE | 2023-06-17 15:05 | Progress Note-Post Operative ---
Post-Operative Progess Note Surgeon (s)/Cigar Packer (s) Surgeon JASPER WARD DO Cigar Packer: n/a Pre-Operative Diagnosis Nausea and vomiting, Weight loss Post-Operative Diagnosis Slight Gastritis Procedure & Operative Findings Date of Procedure 06/17/23 Procedure Performed/Findings EGD with biopsies Anesthesia Type per SOAP BOILER Estimated Blood Loss Estimated blood loss (mL): none Specimens/Packing Specimens Removed Antrum, GE JASPER WARD DO Jun 17, 2023 15:05
[2023-06-17] MEDS ORDERED: SUCR1TAB36 PO (15:08)
--- NOTE | 2023-06-17 15:08 | Discharge Inst-Simple/Standard ---
Discharge Inst-Standard Patient Instructions/Follow Up Plan of Care/Instructions/FU: 2 weeks Stuart Activity as Tolerated: Yes Discharge Diet: Regular Diet JASPER WARD DO Jun 17, 2023 15:08
[2023-06-17 15:10] VITALS: BP 105/61
[2023-06-17 15:15] VITALS: BP 109/68
--- NOTE | 2023-06-17 15:19 | Anesthesia-General Post-Op ---
MAC Patient Condition Mental Status/LOC: Same as Preop Cardiovascular: Satisfactory Nausea/Vomiting: Absent Respiratory: Satisfactory Pain: Controlled Complications: Absent Post Op Complications Complications None Follow Up Care/Instructions Patient Instructions None needed. Anesthesiology Discharge Order Discharge Order Patient is doing well, no complaints, stable vital signs, no apparent adverse anesthesia problems. No complications reported per nursing. ETHAN VINCENT CRNA Jun 17, 2023 15:19
[2023-06-17 15:40] VITALS: BP 109/68
--- NOTE | 2023-06-17 23:22 | OPERATIVE REPORT ---
DATE OF SERVICE: 06/17/2023 PREOPERATIVE DIAGNOSIS: Vomiting. POSTOPERATIVE DIAGNOSIS: Slight gastritis. PROCEDURE: EGD with biopsy. SURGEON: Jasper Davidson DO ANESTHESIA: Per TABLE GAMES SHIFT MANAGER. ESTIMATED BLOOD LOSS: None. COMPLICATIONS: None. INDICATIONS: The patient is a 33-year-old male with significant nausea and vomiting. He was discussed risks and benefits of procedure for further evaluation of the stomach. He understands and wishes to proceed. Consent was signed in chart. DESCRIPTION OF PROCEDURE: The patient was taken to the endoscopy suite, placed in left lateral recumbent position. Timeout was performed. Scope was inserted in the mouth, down the esophagus, stomach, into the duodenum without difficulty. No polyps, masses or ulcerations in the duodenum. Scope was slowly retracted back into stomach where it was further insufflated. Slight gastritis appearance. Biopsy of the antrum was obtained. Scope was retroflexed noting no other pathology. Scope was returned to its normal position, slowly withdrawn until distal esophagus. Biopsy of GE junction was obtained. Scope was slowly retracted back until completely removed. The patient tolerated the procedure well, no complications, taken to recovery room in stable condition. RECOMMENDATIONS: The patient started on Protonix. We will add Carafate to see if any improvement. Further recommendation pending biopsy results, symptoms and follow up in approximately 2 to 4 weeks. Job ID: [id number] DocumentID: [id number] Dictated Date: 06/17/2023 15:07:35 Hogshead Cooper Date: 06/17/2023 23:20:00 Dictated By: JASPER DAVIDSON DO
== END 2023-06-17 15:40 | disposition home or self-care (01) ==
LOC: ENDO 12:43
PROVIDERS: ATTEND Surgery
DX: K20.90 Esophagitis, unspecified without bleeding (principal); K31.89 Other diseases of stomach and duodenum; R63.4 Abnormal weight loss; R11.2 Nausea with vomiting, unspecified; F17.210 Nicotine dependence, cigarettes, uncomplicated
CPT/HCPCS: 88305